=== PATIENT | female | born 1990 | race African-American/Black ===

== ENCOUNTER 2018-07-09 12:00 | Emergency (ER) | payer OTHER ==
[2018-07-09 12:10] VITALS: BP 121/70
[2018-07-09] MEDS ORDERED: DEXAMETHASONE 10 MG/ML VIAL PO STA (12:42)
--- NOTE | 2018-07-09 12:46 | ED Physician Documentation ---
PD HPI UPPER EXT INJURY - Stated complaint Stated Complaint: L SHOULDER INJ - Chief complaint Chief Complaint: Ext Problem - History obtained from History obtained from: Patient - History of Present Illness Location: Left, Shoulder Type of injury: Blunt / blow Where injury occurred: Work Timing - onset: How many days ago (2) Timing - duration: Days (2) Timing - details: Abrupt onset, Still present Improved by: Rest, Immobilization Worsened by: Moving, Palpating Associated symptoms: No: Weakness, Numbness, Tingling Contributing factors: No: Anticoagulated Similar symptoms before: Has not had sx before Recently seen: Not recently seen - Additonal information Additional information: 28-year-old female is visiting the [place] the summer and 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 She has pain associated with her shoulder and with movement of her shoulder she is uncomfortable sleeping at night. She has pain over the supraspinatus area and over the distal clavicle. Review of Systems Constitutional: denies: Fever Eyes: denies: Decreased vision Ears: denies: Ear pain Nose: denies: Congestion Throat: denies: Sore throat Cardiac: denies: Chest pain / pressure, Palpitations Respiratory: denies: Dyspnea, Cough GI: denies: Abdominal Pain, Nausea, Vomiting : denies: Dysuria, Frequency Skin: denies: Rash Musculoskeletal: reports: Extremity pain, Joint pain. denies: Neck pain, Back pain, Extremity swelling, Joint swelling Neurologic: denies: Generalized weakness, Focal weakness PD PAST MEDICAL HISTORY - Present Medications Home Medications: Ambulatory Orders Medication Instructions Recorded Confirmed Tramadol HCl 50 - 100 mg PO Q6HR PRN #12 tablet 07/09/18 - Allergies Allergies/Adverse Reactions: Allergies Allergy/AdvReac Type Severity Reaction Status Date / Time No Known Drug Allergies Allergy Verified 07/09/18 12:10 PD ED PE NORMAL - Vitals Vital signs reviewed: Yes (normal ) - General General: Alert and oriented X 3, No acute distress, Well developed/nourished - HEENT HEENT: Atraumatic, PERRL, EOMI - Neck Neck: Supple, no meningeal sign, No bony TTP - Respiratory Respiratory: No respiratory distress - Back Back: No CVA TTP, No spinal TTP - Derm Derm: Normal color, Warm and dry, No rash - Extremities Extremities: No deformity, No edema, Other (There is no A/C separation or specifi pain to the A/C joint but rather more medial with pain to the distal clavicle. There is pain over the supuraspinatous without mass or deformity and the ROM of the shoulder is largely intact with some pain to far abduction. There is not much pain to cross body movement. ) Results - Vitals Vitals: Vital Signs - 24 hr 07/09/18 12:06 Temperature 36.8 C Heart Rate 79 Respiratory 16 Rate Blood Pressure 121/70 O2 Saturation 99 Oxygen O2 Source Room air PD MEDICAL DECISION MAKING - ED course Complexity details: reviewed results, re-evaluated patient, considered differential, d/w patient ED course: 28-year-old female with a contusion to the left shoulder has no evidence of fracture or shoulder separation. Should be treated conservatively with a sling. - Sepsis Event Vital Signs: Vital Signs - 24 hr 07/09/18 12:06 Temperature 36.8 C Heart Rate 79 Respiratory 16 Rate Blood Pressure 121/70 O2 Saturation 99 Oxygen O2 Source Room air Departure - Departure Disposition: 01 Home, Self Care Clinical Impression: Contusion of left shoulder, initial encounter Condition: Stable Instructions: ED Contusion Shoulder Follow-Up: [facility] [Provider Group] Prescriptions: Tramadol HCl 50 - 100 mg PO Q6HR PRN #12 tablet PRN Reason: Pain Discharge Date/Time: 07/09/18 13:51
--- NOTE | 2018-07-09 13:40 | XRAY Report ---
Procedure Date: 07/09/2018 Accession Number: [id number] / [id number] Procedure: XR - Shoulder 3 View LT CPT Code: FULL RESULT: EXAM: LEFT SHOULDER RADIOGRAPHY EXAM DATE: 07/09/2018 01:03 PM. CLINICAL HISTORY: Pain to the lft distal clavicle direct contusion. COMPARISON: None available. TECHNIQUE: 3 views. FINDINGS: Bones: Normal. No fracture or bone lesion. Joints: The glenohumeral and acromioclavicular joints are normal. Soft tissues: The visualized hemithorax is unremarkable. No soft tissue swelling. IMPRESSION: Negative left shoulder. [facility]
== END 2018-07-09 13:51 | disposition home or self-care (01) ==
LOC: ED 12:00
DX: S40.012A Contusion of left shoulder, initial encounter (principal); X58.XXXA Exposure to other specified factors, initial encounter; Y93.D9 Activity, other involving arts and handcrafts
CPT/HCPCS: 99283